=== PATIENT | male | born 1955 | race Hispanic/Latino ===

== ENCOUNTER → 2020-12-01 | Outpatient (CLI) | payer OTHER, SELFPAY | END | disposition home or self-care (01) | LOC: OIH 13:11 | PROVIDERS: ATTEND Internal Medicine Nephrology | DX: Z13.6 Encounter for screening for cardiovascular disorders (principal); K44.9 Diaphragmatic hernia without obstruction or gangrene | CPT/HCPCS: 75571 ==

== ENCOUNTER 2021-09-19 09:08 | Observation (INO) | payer MEDICARE ==
[2021-09-16 10:40] LABS: BASOPHILS % (AUTO) 0.8 % (0.0-5.0); EOSINOPHILS % (AUTO) 4.2 % (0.0-8.0); HEMATOCRIT 45.4 % (42-54); LYMPHOCYTES % (AUTO) 24.8 % (21.0-51.0); MEAN CORPUSCULAR HEMOGLOBIN 25.4 pg (27.0-33.0); MEAN CORPUSCULAR HGB CONC 31.3 g/dL (32.0-36.0); MEAN CORPUSCULAR VOLUME 81.4 fL (79-99); MONOCYTES % (AUTO) 7.5 % (3.0-13.0); NEUTROPHILS % (AUTO) 62.4 % (40.0-77.0); PLATELET COUNT (AUTO) 249 K/uL (130-400); RED BLOOD CELL COUNT(AUTO) 5.58 MIL/uL (4.50-6.20)
[2021-09-16 10:44] LABS: APPEARANCE,URINE CLEAR (CLEAR); BILIRUBIN,URINE NEGATIVE (NEGATIVE); COLOR,URINE YELLOW (YELLOW); GLUCOSE, URINE (UA) NEGATIVE (NEGATIVE); KETONES,URINE NEGATIVE (NEGATIVE); LEUKOCYTE ESTERASE ,URINE NEGATIVE (NEGATIVE); NITRATE,URINE NEGATIVE (NEGATIVE); OCCULT BLOOD,URINE NEGATIVE (NEGATIVE); PROTEIN,URINE NEGATIVE (NEGATIVE); UROBILINOGEN,URINE 0.2 mg/dL (0.2-1.0)
[2021-09-16 10:53] LABS: CREATININE 0.9 mg/dL (0.5-1.5)
[2021-09-16 10:55] LABS: INR 1.05 (0.85-1.15); PROTHROMBIN TIME 11.4 SEC (9.6-11.6)
[2021-09-16 14:58] VITALS: BP 150/85
[~2021-09-19] VITALS: Ht 175.3 cm; Wt 107.5 kg
[2021-09-19] VITALS (26 sets, daily range): BP systolic 121–155; BP diastolic 68–101
[2021-09-19] MEDS: CEFAZOLIN SODIUM 1 GM VIAL IVP SCH ×3 (06:00→20:37)
[~2021-09-19 09:08] MED LIST: MIRA25TA PO; MULT-1289 PO; OLME-9 PO; OMEP40CA21 PO; ROSU5TAB12 PO; SEMA1PEN3 SQ; TAMS-1 PO
[2021-09-19] MEDS: LACTATED RINGERS 1000ML 1,000 ML IV ONE ×2 (11:09→11:33)
[2021-09-19] MEDS ORDERED: 0.9%NACL 1000ML 1,000 ML IV ONE (11:34)
[2021-09-19] MEDS ORDERED: EMPA25TA PO (11:45)
[2021-09-19] MEDS ORDERED: TRANEXAMIC ACID 1000MG/10ML ONE ×2 (12:01→16:31)
[2021-09-19] MEDS ORDERED: CEFAZOLIN SODIUM 1 GM VIAL ONE (12:01)
[2021-09-19] MEDS ORDERED: SUCCINYLCHOLINE CHLORIDE 20 MG/ML 10 ML VIAL ONE (12:57)
[2021-09-19] MEDS ORDERED: PROPOFOL 10 MG/ML 20ML VIAL IV ONE (12:58)
[2021-09-19] MEDS ORDERED: LIDOCAINE PF 100MG/5ML (2%) SYRINGE 5ML ONE (12:58)
[2021-09-19] MEDS ORDERED: ROCURONIUM 10MG/1ML SYR 10 MG/ML ML ONE (12:59)
[2021-09-19] MEDS ORDERED: NEOSTIGMINE 5MG/5ML SYR IV ONE (12:59)
[2021-09-19] MEDS ORDERED: ONDANSETRON 4MG INJ ONE (12:59)
[2021-09-19] MEDS ORDERED: GLYCOPYRROLATE 1 MG/5 ML SYRINGE ONE (12:59)
[2021-09-19] MEDS ORDERED: MIDAZOLAM HCL 1 MG/ML 2ML VIAL ONE (12:59)
[2021-09-19] MEDS ORDERED: ROPIVACAINE 0.5% 5MG/ML 30ML IJ ONE (13:00)
[2021-09-19] MEDS ORDERED: FENTANYL CITRATE PF 50 MCG/1 ML 2ML VIAL ONE ×2 (13:00→14:56)
[2021-09-19] MEDS ORDERED: FAMOTIDINE 20MG VIAL IV ONE (13:07)
[2021-09-19] MEDS ORDERED: CEFAZOLIN SODIUM 1 GM VIAL IRRIG ONE (13:48)
[2021-09-19] MEDS ORDERED: EPHEDRINE SULFATE 50 MG/ML AMPULE ONE (14:14)
[2021-09-19] MEDS ORDERED: DiphenhydrAMINE HCL 50 MG/ML VIAL IVP PRN (15:00)
[2021-09-19] MEDS ORDERED: CALCIUM CARB 500MG PO PRN (15:00)
[2021-09-19] MEDS ORDERED: TRAMADOL HCL 50 MG TABLET PO PRN (15:00)
[2021-09-19] MEDS: ACETAMINOPHEN 500 MG TABLET PO SCH ×2 (15:00→23:32)
[2021-09-19] MEDS ORDERED: OXYCODONE HCL 5 MG TAB PO PRN (15:00)
[2021-09-19] MEDS ORDERED: ONDANSETRON 4MG INJ IVP PRN (15:00)
[2021-09-19] MEDS ORDERED: TEMAZEPAM 15 MG CAPSULE PO PRN (15:00)
[2021-09-19] MEDS ORDERED: FERROUS FUMARATE 324 MG TABLET PO PRN (15:00)
[2021-09-19] MEDS ORDERED: POTASSIUM CHLORIDE 10% ELIXIR 20 MEQ/15 ML UDCUP PO PRN (15:00)
[2021-09-19] MEDS ORDERED: 0.9%NACL 1000ML 1,000 ML IV SCH (15:00)
[2021-09-19] MEDS ORDERED: POTASSIUM CHLORIDE 20MEQ/100ML 100 ML IV PRN (15:00)
[2021-09-19] MEDS ORDERED: KCL 20 MEQ ERTAB PO PRN (15:00)
[2021-09-19] MEDS ORDERED: LIDOCAINE HCL-MPF 1% 2ML VIAL IV PRN (15:00)
[2021-09-19] MEDS ORDERED: MEPERIDINE-PF 25 MG/ML SYG ONE ×2 (16:14→16:31)
[2021-09-19] MEDS: INSULIN HUMULIN R 100 UNIT/ML 3ML SQ SCH ×2 (16:30→20:35)
[2021-09-19] MEDS: KETOROLAC 15MG/ML VIAL (15MG/ML) IV PRN (17:51)
[2021-09-19] MEDS ORDERED: CELECOXIB 200 MG CAP ONE (19:20)
[2021-09-19] MEDS ORDERED: PREGABALIN 25 MG CAP ONE (19:21)
[2021-09-19] MEDS ORDERED: ASPIRIN 81 MG EC TAB ONE (19:21)
[2021-09-19] MEDS: ASPIRIN 81 MG EC TAB PO SCH (20:36)
[2021-09-19] MEDS: CELECOXIB 200 MG CAP PO SCH (20:36)
[2021-09-19] MEDS: PREGABALIN 25 MG CAP PO SCH (20:36)
[2021-09-19] MEDS: ATORVASTATIN 10 MG TABLET PO SCH (20:38)
[2021-09-20] VITALS (7 sets, daily range): BP systolic 101–138; BP diastolic 59–86
[2021-09-20] MEDS: CEFAZOLIN SODIUM 1 GM VIAL IVP SCH (03:16)
[2021-09-20 03:56] LABS: HEMATOCRIT 38.9 % (42-54); MEAN CORPUSCULAR HEMOGLOBIN 25.3 pg (27.0-33.0); MEAN CORPUSCULAR HGB CONC 30.6 g/dL (32.0-36.0); MEAN CORPUSCULAR VOLUME 82.6 fL (79-99); PLATELET COUNT (AUTO) 229 K/uL (130-400); RED BLOOD CELL COUNT(AUTO) 4.71 MIL/uL (4.50-6.20); RED CELL DISTRIBUTION WIDTH 15.8 % (11.0-15.5); WHITE BLOOD COUNT (AUTO) 11.1 K/uL (4.8-10.8)
[2021-09-20 04:08] LABS: CREATININE 0.9 mg/dL (0.5-1.5); POTASSIUM 4.3 mmol/L (3.5-5.1)
[2021-09-20] MEDS: INSULIN HUMULIN R 100 UNIT/ML 3ML SQ SCH ×4 (04:25→21:00)
[2021-09-20] MEDS: ACETAMINOPHEN 500 MG TABLET PO SCH ×3 (05:14→20:44)
[2021-09-20] MEDS: TAMSULOSIN HCL 0.4 MG CAP.ER.24H PO SCH ×2 (09:00→09:05)
[2021-09-20] MEDS: ASPIRIN 81 MG EC TAB PO SCH ×2 (09:05→20:42)
[2021-09-20] MEDS: HYDROCHLOROTHIAZIDE 25 MG TABLET PO SCH (09:05)
[2021-09-20] MEDS: PREGABALIN 25 MG CAP PO SCH ×2 (09:05→20:43)
[2021-09-20] MEDS: CELECOXIB 200 MG CAP PO SCH ×2 (09:06→20:43)
[2021-09-20] MEDS: LOSARTAN 100 MG TABLET PO SCH (09:06)
[2021-09-20] MEDS: POLYETHYLENE GLYCOL 3350 17 GM POWD.PACK PO SCH (09:06)
[2021-09-20] MEDS: MULTIVITAMIN WITH MINERALS TABLET PO SCH (09:06)
[2021-09-20] MEDS: EMPAGLIFLOZIN 25 MG PO SCH (09:09)
[2021-09-20] MEDS: MIRABEGRON 25 MG PO SCH (09:09)
[2021-09-20] MEDS: ATORVASTATIN 10 MG TABLET PO SCH (20:43)
[2021-09-20] MEDS: OXYCODONE HCL 5 MG TAB PO PRN (23:39)
[2021-09-21 04:16] VITALS: BP 132/88
[2021-09-21] MEDS: ACETAMINOPHEN 500 MG TABLET PO SCH (05:24)
[2021-09-21] MEDS: INSULIN HUMULIN R 100 UNIT/ML 3ML SQ SCH ×3 (05:32→16:14)
[2021-09-21 07:20] VITALS: BP 147/100
[2021-09-21] MEDS: POLYETHYLENE GLYCOL 3350 17 GM POWD.PACK PO SCH (08:28)
[2021-09-21] MEDS: ASPIRIN 81 MG EC TAB PO SCH (08:28)
[2021-09-21] MEDS: HYDROCHLOROTHIAZIDE 25 MG TABLET PO SCH (08:28)
[2021-09-21] MEDS: MULTIVITAMIN WITH MINERALS TABLET PO SCH (08:28)
[2021-09-21] MEDS: PREGABALIN 25 MG CAP PO SCH (08:28)
[2021-09-21] MEDS: LOSARTAN 100 MG TABLET PO SCH (08:28)
[2021-09-21] MEDS: TAMSULOSIN HCL 0.4 MG CAP.ER.24H PO SCH ×2 (08:29→08:34)
[2021-09-21] MEDS: CELECOXIB 200 MG CAP PO SCH (08:35)
[2021-09-21] MEDS: OXYCODONE HCL 5 MG TAB PO PRN (08:43)
[2021-09-21] MEDS: MIRABEGRON 25 MG PO SCH (08:44)
[2021-09-21] MEDS: EMPAGLIFLOZIN 25 MG PO SCH (08:45)
[2021-09-21] MEDS ORDERED: PANTOPRAZOLE 40 MG TAB DR PO SCH (09:00)
[2021-09-21 11:00] VITALS: BP 152/92
[2021-09-21] MEDS: KETOROLAC 15MG/ML VIAL (15MG/ML) IV PRN (13:12)
[2021-09-21 15:05] VITALS: BP 134/81
[2021-09-21] MEDS ORDERED: HYDR-4060 PO (15:31)
[2021-09-22] MEDS ORDERED: BISACODYL 10 MG SUPP.RECT RC PRN (15:00)
[2021-09-26] MEDS ORDERED: SEMAGLUTIDE 2.5 MG SQ SCH (09:00)
== END 2021-09-21 17:57 ==
LOC: DAHIP 10:00 → EDSTATUS 11:55 → 4AH 18:10
PROVIDERS: ADMIT Orthopaedic Surgery; ATTEND Orthopaedic Surgery
DX: M17.12 Unilateral primary osteoarthritis, left knee (principal); Z20.822 Contact with and (suspected) exposure to COVID-19; M17.32 Unilateral post-traumatic osteoarthritis, left knee; I10 Essential (primary) hypertension; E11.9 Type 2 diabetes mellitus without complications; K21.9 Gastro-esophageal reflux disease without esophagitis; N40.0 Benign prostatic hyperplasia without lower urinary tract symptoms; D64.9 Anemia, unspecified; Z79.899 Other long term (current) drug therapy; Z98.890 Other specified postprocedural states
CPT/HCPCS: 27447; 36415 ×2; 64447; 76942; 80048 ×2; 81003; 82948 ×10; 85025; 85027; 85610; 87088; 87635; 87641; 93005; 96374; 96375; 96376 ×2; 97039 ×4; 97116 ×4; 97161; 97530 ×3; A4215; A4221; A4222; A4223; A4600; A4649 ×5; A4663; A4930; A9272; C1776; G0378 ×46; J0330; J0690 ×4; J1885 ×2; J2001; J2175 ×2; J2250; J2405; J2704; J2710; J2795; J3010 ×2; J3490 ×5; J7030; J7120 ×2

== ENCOUNTER 2021-12-11 14:51 | Emergency (ER) | payer MEDICARE ==
[~2021-12-11] VITALS: Ht 165.1 cm; Wt 101.2 kg
[~2021-12-11 14:51] MED LIST changes: +EMPA25TA PO
[2021-12-11] MEDS ORDERED: LIDOCAINE HCL 2% VISCOUS 15 ML UDCUP PO ONE (15:00)
[2021-12-11] MEDS ORDERED: DICYCLOMINE HCL 10 MG/5 ML ML PO ONE (15:00)
[2021-12-11] MEDS ORDERED: MAG/ALUM/SIMETH 30 ML UDCUP PO ONE (15:00)
[2021-12-11] MEDS ORDERED: FAMOTIDINE 20MG VIAL IV ONE (15:00)
[2021-12-11 15:27] LABS: BASOPHILS % (AUTO) 0.4 % (0.0-5.0); EOSINOPHILS % (AUTO) 2.8 % (0.0-8.0); LYMPHOCYTES % (AUTO) 11.7 % (21.0-51.0); MEAN CORPUSCULAR HEMOGLOBIN 24.2 pg (27.0-33.0); MEAN CORPUSCULAR VOLUME 80.6 fL (79-99); MONOCYTES % (AUTO) 5.9 % (3.0-13.0); PLATELET COUNT (AUTO) 244 K/uL (130-400); RED BLOOD CELL COUNT(AUTO) 4.84 MIL/uL (4.50-6.20); RED CELL DISTRIBUTION WIDTH 18.5 % (11.0-15.5); WHITE BLOOD COUNT (AUTO) 9.6 K/uL (4.8-10.8)
[2021-12-11 15:41] LABS: CREATININE 1.2 mg/dL (0.5-1.5); POTASSIUM 3.8 mmol/L (3.5-5.1)
[2021-12-11] MEDS ORDERED: FAMOTIDINE 20MG TAB ONE (15:48)
[2021-12-11 15:50] LABS: ALBUMIN 3.7 g/dL (3.5-5.0); BILIRUBIN,TOTAL 0.8 mg/dL (0.2-1.0); TOTAL PROTEIN, SERUM 7.4 g/dL (6.0-8.3)
[2021-12-11] MEDS ORDERED: FAMOTIDINE 20MG TAB PO ONE (16:00)
[2021-12-11 16:28] VITALS: BP 103/58
[2021-12-11 16:29] LABS: APPEARANCE,URINE Cloudy (CLEAR); BILIRUBIN,URINE Small (NEGATIVE); COLOR,URINE Dark Yellow (YELLOW); GLUCOSE, URINE (UA) Negative (NEGATIVE); KETONES,URINE Trace mg/dL (NEGATIVE); LEUKOCYTE ESTERASE ,URINE Small (NEGATIVE); NITRATE,URINE Negative (NEGATIVE); OCCULT BLOOD,URINE Negative (NEGATIVE); PH,URINE 5.5 (5.0-8.0); PROTEIN,URINE POS 2+ mg/dL (NEGATIVE)
[2021-12-11 17:01] LABS: BACTERIA,URINE Few /HPF (None Seen); MUCUS,URINE Moderate LPF (None Seen); SQUAMOUS EPITHELIAL CELL,UR Few /HPF (0-2)
[2021-12-11] MEDS ORDERED: FAMO-136 PO (17:05)
[2021-12-11] MEDS ORDERED: CEPH500B PO (17:05)
[2021-12-11] MEDS ORDERED: CEFTRIAXONE 1G VIAL IM ONE (17:30)
== END 2021-12-11 17:27 | disposition home or self-care (01) ==
LOC: EDH 14:51
DX: R07.89 Other chest pain (principal); K44.9 Diaphragmatic hernia without obstruction or gangrene; N39.0 Urinary tract infection, site not specified; E66.9 Obesity, unspecified; Z68.37 Body mass index [BMI] 37.0-37.9, adult; E11.9 Type 2 diabetes mellitus without complications; E78.00 Pure hypercholesterolemia, unspecified; I10 Essential (primary) hypertension; Z79.899 Other long term (current) drug therapy
CPT/HCPCS: 36415; 71045; 80053; 81001; 83690; 84484; 85025; 93005; 96374; J0696

== ENCOUNTER → 2025-02-16 | Outpatient (CLI) | payer MEDICARE ==
[~2025-02-16] MED LIST changes: +CEPH500B PO; +FAMO-136 PO; +OLME-30 PO; -OLME-9 PO; -ROSU5TAB12 PO; +ROSU5TAB51 PO; -TAMS-1 PO; +TAMS-55 PO
--- NOTE | 2025-02-16 09:05 | HMCIMG ---
DOUBLE CONTRAST UPPER GI SERIES: Finding: The study was performed using provocative maneuvers After swallowing effervescent crystal and thick barium, there is no definite intrinsic or extrinsic lesion seen in the esophagus. There is a large left paraesophageal hiatal hernia with grade 1 esophageal reflux The stomach is normal in size, shape, and configuration.The rugal folds appear to be normal. The duodenal bulb, duodenal sweep, and upper jejunum appear to be normal. Fluoroscopy time: 1.4 minutes.. IMPRESSION: Large paraesophageal hiatal hernia with grade 1 esophageal reflux Otherwise NORMAL DOUBLE CONTRAST UPPER GI SERIES.
== END | disposition home or self-care (01) ==
LOC: RAH 07:38
PROVIDERS: ATTEND Internal Medicine
DX: K44.9 Diaphragmatic hernia without obstruction or gangrene (principal); K21.9 Gastro-esophageal reflux disease without esophagitis
CPT/HCPCS: 74240